=== PATIENT | female | born 1945 | race Caucasian/White ===

== ENCOUNTER 2018-08-12 17:54 | Inpatient (IN) ==
--- NOTE | 2018-08-12 19:09 | Emergency Department Note ---
Disposition Clinical Impression: PPD positive, Abnormal CXR Dementia Qualifiers: Dementia type: unspecified type Dementia behavioral disturbance: with behavioral disturbance Qualified Code(s): F03.91 - Unspecified dementia with behavioral disturbance Disposition: Admitted As Inpatient Condition: Fair Time of Disposition: 01:29 General Adult HPI - General Chief complaint: ED General Medical Stated complaint: Possible TB Time Seen by Provider: 08/12/18 18:32 - History of Present Illness HPI Narrative: 73 year old female comes into the ER today after receiving a TB test at her PCP two days ago even though she has a know allergy to the TB test. Today when she went nto have the test read she was advised to go to the ER. She is currently not complaining of any symptoms currently. She is with one of her caregivers, who give most of the history due to the pt having dementia. She denies any cough, hemoptysis, sputum production, night sweats, nausea, vomiting, fever, chills, or headache. Pain Scale: 0 - Related Data Home Medications Medication Instructions Recorded Confirmed PARoxetine HCl [Paroxetine HCl] 40 mg PO 1600 01/25/18 08/12/18 Quetiapine Fumarate [Seroquel] 100 mg PO TID 01/25/18 08/12/18 Allergies Allergy/AdvReac Type Severity Reaction Status Date / Time lorazepam [From Ativan] Allergy Rash Verified 06/09/18 18:46 tb skin test Allergy Mild Rash Uncoded 06/09/18 18:46 Constitutional: Denies: fever, chills, weakness, weight change, night sweats ENT ED: Denies: congestion Cardiovascular: Denies: chest pain Respiratory: Denies: cough, hemoptysis, sputum production Gastrointestinal: Denies: abdominal pain, nausea, vomiting Past Medical History - Past Medical History Medical history: Reports: dementia, hypertension Surgical history: Reports: non-contributory Psychiatric history: Reports: no psych history 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 Absent: respiratory distress, wheezes - Cardiovascular Cardiovascular exam: Present: normal rhythm, normal heart sounds - Abdominal Exam Abdominal exam: Present: soft, Non-Tender. Absent: distention, guarding - Expanded Upper Extremity Exam Forearm/Wrist exam: Present: erythema (left positive TB test) Course Vital Signs Pulse Rate 106 08/12/18 18:25 Respiratory Rate 20 08/12/18 18:25 O2 Sat by Pulse Oximetry 95 08/12/18 18:25 Temperature 97.4 F L 08/12/18 22:21 Pulse Rate 98 08/12/18 22:21 Respiratory Rate 16 08/12/18 22:21 Blood Pressure 137/74 08/12/18 22:21 O2 Sat by Pulse Oximetry 92 08/12/18 22:21 Oxygen Delivery Oxygen Delivery Room Air
--- NOTE | 2018-08-12 19:35 | Emergency Department Note ---
Disposition Clinical Impression: PPD positive, Abnormal CXR Dementia Qualifiers: Dementia type: unspecified type Dementia behavioral disturbance: with behavioral disturbance Qualified Code(s): F03.91 - Unspecified dementia with behavioral disturbance Disposition: Admitted As Inpatient Condition: Fair Time of Disposition: 23:42 General Adult HPI - General Chief complaint: ED General Medical Stated complaint: Possible TB Time Seen by Provider: 08/12/18 18:32 Source: family Mode of arrival: wheelchair Limitations: age, other (demetia) Nursing Notes Reviewed: Yes Vital Signs Reviewed: Yes - History of Present Illness HPI Narrative: The history, physical exam, and medical decision making was performed by the medical student either while I was physically present and actively involved or I personally re-performed the exam and medical decision making. I have verified the accuracy of the medical student's documentation with regards to the history, physical exam findings, and medical decision making. Pain Scale: 0 - Related Data Home Medications Medication Instructions Recorded Confirmed PARoxetine HCl [Paroxetine HCl] 40 mg PO 1600 01/25/18 08/12/18 Quetiapine Fumarate [Seroquel] 100 mg PO TID 01/25/18 08/12/18 Allergies Allergy/AdvReac Type Severity Reaction Status Date / Time lorazepam [From Ativan] Allergy Rash Verified 06/09/18 18:46 tb skin test Allergy Mild Rash Uncoded 06/09/18 18:46 All systems ED: reviewed and negative except as stated. Review of Systems: As Per HPI Limitations: ROS unobtainable due to patients medical condition Constitutional: Denies: fever, chills, weakness, weight change, night sweats ENT ED: Denies: congestion Cardiovascular: Denies: chest pain Respiratory: Denies: cough, hemoptysis, sputum production Gastrointestinal: Denies: abdominal pain, nausea, vomiting Integumentary: Reports: other (Left arm redness and erythema with PPD) Past Medical History - Past Medical History Medical history: Reports: dementia, hypertension Surgical history: Reports: non-contributory Psychiatric history: Reports: no psych history NOISE TESTER history: Reports: no NOISE TESTER history - Social History Smoking Status: Never smoker Smokeless Tobacco Status: No Alcohol use: Reports: none Drug use: Reports: none Physical Exam General: Patient is combative during physical exam however will not me examine her, she is in no acute distress, is unable to provide further history given history of dementia. Neck: No JVD. Trachea midline. Neck supple. Eyes: PERRL. No scleral icterus. HENT: Normocephalic and atraumatic. Moist mucus membranes. Cardiovascular: Regular rate and rhythm. Normal S1 and S2. No murmurs appreci ated. Normal capillary refill. Extremities well perfused with 2+ distal pulses bilaterally. No edema. Pulmonary: Normal and equal breath sounds bilaterally, anteriorly and posteriorly. No wheezes, rales, or rhonchi. Not in respiratory distress. Speaks in full sentences. Neuro: Alert, patient is not alert or oriented to person place or time, per caregiver and the redness is her baseline, no neurological deficit, patient is moving all 4 extremities, will not follow commands at this point. Per caregiver this is patient's baseline. Patient is verbalizing herself to the caregiver. Skin: Patient with left arm erythema with a approximate 15 mm region of raised area to the left anterior forearm, with surrounding erythema, without noticeable excoriation or induration, is slightly warm to touch. No fluctuance. Musculoskeletal: No bony abnormalities visualized. Moves all extremities. Psych: Normal mood. Pleasant. Makes appropriate eye contact. - General Limitations: age, other (demetia) General appearance: in no apparent distress Course Vital Signs Pulse Rate 106 08/12/18 18:25 Respiratory Rate 20 08/12/18 18:25 O2 Sat by Pulse Oximetry 95 08/12/18 18:25 Temperature 97.4 F L 08/12/18 22:21 Pulse Rate 98 08/12/18 22:21 Respiratory Rate 16 08/12/18 22:21 Blood Pressure 137/74 08/12/18 22:21 O2 Sat by Pulse Oximetry 92 08/12/18 22:21 Oxygen Delivery Oxygen Delivery Room Air Medical Decision Making - [facility] Narrative Medical decision making narrative: Patient is 73-year-old female presenting with caregiver from the long-term for concern for positive PPD. Patient with history of dementia and agitation. Per caregiver, patient is at mental status baseline with no acute change, patient is moving all 4 extremities but very difficult to perform examination as she does not follow Commands and becomes agitated easily. No acute neurological deficit is noticed on my examination. On examination there is a PPD that is on the left forearm appears to be positive with surrounding erythema, without fluctuance or noticed of abscess. He had a positive PPD and concern, chest x-ray was performed. Patient has remained asymptomatic throughout without known contacts. No recent cough, fevers chills or weight loss per caregiver. Patient unable to provide this history. Chest x-ray does show concern for possible latent tuberculosis, no fever or chills, afebrile with normal vital signs here in the ED. My attending did speak with the on-call mica patcher who initially thought that she would be appropriate for outpatient follow-up, however did call back the attending and state that he would like to go ahead and admit the patient as this is a higher risk situation given the patient's contact with other immunocompromise patients at a long-term. Patient will be admitted at this point in time. I did speak with the caregiver as well as the caregivers boss regarding the situation. She states that she currently has holds her own power of patent attorney, however he did discuss with her that she does not have capacity given her mental status, and that caregiver does state that there is family however they are not significantly in the picture. We did discuss at that point in time that they would need to try to contact them as if a procedure is to be done from a pulmonology standpoint we will need to be contacted for approval and consent. At this point the caregiver and her boss, they agree with disposition of admission. - Medical Records Medical records reviewed: Yes I reviewed the patient's medical records. - Radiology Data Radiology results reviewed: Yes I reviewed the patient's radiology results. Chest X-Ray 08/12/18 18:57 IMPRESSION: Focal pneumonitis versus subsegmental atelectasis central lower right lung. Chronic appearing coarse interstitial densities predominate parahilar regions and lung bases, typical of sequela from smoking or other previous infectious/inflammatory process. D/ / Steve Mckeon / Steve Mckeon Interpreting Provider: Steve Mckeon
--- NOTE | 2018-08-12 20:48 | Emergency Department Note ---
Disposition Clinical Impression: PPD positive, Abnormal CXR Dementia Qualifiers: Dementia type: unspecified type Dementia behavioral disturbance: with behavioral disturbance Qualified Code(s): F03.91 - Unspecified dementia with behavioral disturbance Disposition: Admitted As Inpatient Condition: Fair Forms: ED Satisfaction Letter, Work/School Release Time of Disposition: 20:47 General Adult HPI - General Chief complaint: ED General Medical Stated complaint: Possible TB Time Seen by Provider: 08/12/18 18:32 Source: family Mode of arrival: wheelchair Limitations: age, other (demetia) - History of Present Illness Pain Scale: 0 - Related Data Home Medications Medication Instructions Recorded Confirmed PARoxetine HCl [Paroxetine HCl] 40 mg PO 1800 01/25/18 01/27/18 Quetiapine Fumarate [Seroquel] 100 mg PO TID 01/25/18 01/25/18 Previous Rx's Medication Instructions Recorded Tobramycin Opth SOLN 1 drop RIGHT EYE QID #1 bottle 06/09/18 Allergies Allergy/AdvReac Type Severity Reaction Status Date / Time lorazepam [From Ativan] Allergy Rash Verified 06/09/18 18:46 tb skin test Allergy Mild Rash Uncoded 06/09/18 18:46 Constitutional: Denies: fever, chills, weakness, weight change, night sweats ENT ED: Denies: congestion Cardiovascular: Denies: chest pain Respiratory: Denies: cough, hemoptysis, sputum production Gastrointestinal: Denies: abdominal pain, nausea, vomiting Past Medical History - Past Medical History Medical history: Reports: dementia, hypertension Surgical history: Reports: non-contributory Psychiatric history: Reports: no psych history MACHINE LOAD CLERK history: Reports: no MACHINE LOAD CLERK history - Social History Smoking Status: Never smoker Smokeless Tobacco Status: No Alcohol use: Reports: none Drug use: Reports: none Physical Exam - General Limitations: age, other (demetia) General appearance: in no apparent distress Course Vital Signs Pulse Rate 106 08/12/18 18:25 Respiratory Rate 20 08/12/18 18:25 O2 Sat by Pulse Oximetry 95 08/12/18 18:25 Temperature 97.6 F 08/12/18 19:56 Pulse Rate 106 08/12/18 18:25 Respiratory Rate 20 08/12/18 19:56 Blood Pressure 153/98 08/12/18 19:56 O2 Sat by Pulse Oximetry 95 08/12/18 18:25 Oxygen Delivery Oxygen Delivery Room Air Attestation Statement - Attestation Attestation: I examined this patient and my medical decision-making was reviewed with the Resident Physician. I agree with the documented findings, disposition and treatment plan as described except to the extent set forth below. [facility] for a [facility]. No fever, hemoptysis, cough. Not able to get history from the patient as she has significant dementia and is not cooperative. Chest x-ray is abnormal. Findings discussed in detail with roof fitter neonatal nurse, who stated that their current policy for these cases is to admit to a negative pressure room. He will do a bronchoscopy in the morning. Spoke with hospitalist to admit the patient to the hospital. Spoke with charge nurse spoke with the patient and negative pressure room.
[2018-08-13] MEDS ORDERED: Naloxone 0.4 MG/ML INJ IVP PRN (01:20)
--- NOTE | 2018-08-13 01:29 | Internal Med History&Physical ---
Date of Encounter: 08/13/18 Time of Encounter: 00:45 Internal Medicine - H&P: HPI Chief complaint: Positive PPD test Admitted From: Emergency Dept Plans for Post Hospital Care: Home History of present illness: Ms. Shah is a 73 year old female Patient presented to the ER after having a positive PPD performed by his pcp. She has a history of dementia, and does not cooperate with the exam or answer questions. According to ER documentation patient had a TB test that was done by her PCP 2 days ago the results of which were positive. She lives at a [facility]. She initially presented with a caregiver who helped with the details of her history. She is unavailable for my exam. In the emergency department patient's initial vital signs demonstrated a slightly elevated heart rate of 106 and respiratory rate of 20. She was afebrile. No laboratory workup was performed Chest x-ray showed focal pneumonitis versus subsegmental atelectasis in the central lower right lung. There was chronic appearing coarse interstitial densities predominantly perihilar regions and lung bases typical of sequela from smoking or other previous infection/inflammatory process. Emergency department contacted on-call pulmonology who advised patient be admitted to the hospital for further workup and possible bronchoscopy. Patient was admitted to the hospital for further monitoring. Upon my evaluation, patient is in a negative pressure room laying in the bed in no acute distress. She does not answer questions does not acknowledge my presence. I was able to perform a limited physical exam. Past Med Surg Social Fam HX - Past Medical History Medical history: dementia, hypertension Additional medical history: MRDD Psychiatric history: no psych history - Past Surgical History Surgical History: non-contributory - Social History Smoking Status: Never smoker Smokeless Tobacco Status: No Alcohol use: none Drug use: none - Family History Mother Living Status: Father Living Status: Internal Medicine - H&P: Meds PARoxetine HCl [Paroxetine HCl] 40 mg PO 1600 01/25/18 [History] Quetiapine Fumarate [Seroquel] 100 mg PO TID 01/25/18 [History] Allergy/AdvReac Type Severity Reaction Status Date / Time lorazepam [From Ativan] Allergy Rash Verified 06/09/18 18:46 tb skin test Allergy Mild Rash Uncoded 06/09/18 18:46 ROS unobtainable: due to mental status All Systems PM: A 10-system review of systems was performed and is negative for pertinent findings except as documented above in the HPI. - Constitutional Vitals: Temp Pulse Resp BP Pulse Ox 97.4 F L 98 16 137/74 92 08/12/18 22:21 08/12/18 22:21 08/12/18 22:21 08/12/18 22:21 08/12/18 22:21 General appearance: Present: no acute distress. Absent: cooperative, answers questions appropriately Exam: Patient not responding to questions, does not cooperate with exam - Head Head exam: Present: normal inspection - Respiratory Respiratory exam: Present: CTAB - Cardiovascular Cardiovascular exam: Present: RRR - GI/Abdominal GI/Abdominal exam: Present: normal bowel sounds - Extremities Exam Extremities exam: Present: warm, radial pulses palpable and symmetrical. Absent: pedal edema - Skin Skin exam: Present: dry, normal color, warm Internal Med - H&P Results - Labs CBC & Chem 7: 08/13/18 02:01 - Impressions ITS Impressions Chest X-Ray 08/12/18 18:57 IMPRESSION: Focal pneumonitis versus subsegmental atelectasis central lower right lung. Chronic appearing coarse interstitial densities predominate parahilar regions and lung bases, typical of sequela from smoking or other previous infectious/inflammatory process. D/ / Steve Mckeon / Steve Mckeon Interpreting Provider: Steve Mckeon - Assessment and Plan (1) PPD positive Current Visit: Yes Status: Acute Assessment and plan: Emergency department discussed results with on-call pulmonology. They agree patient should be admitted for further monitoring and workup as well as isolation from other possible immunocompromised patients that the patient shares residency with at the [facility]. Follow-up pulmonology consultation Continue isolation (2) Abnormal CXR Current Visit: Yes Status: Acute Assessment and plan: Chest x-ray showed focal pneumonitis versus subsegmental atelectasis and central lower lung also predominant perihilar regions at the lung bases which could be infectious or inflammatory processes. This along with the positive PPD is concerning for possible tuberculosis. CT chest was ordered, however due to patient's combative nature she this was unable to be performed. Follow-up pulmonology recommendations Continue negative pressure isolation (3) Dementia Current Visit: Yes Status: Chronic Assessment and plan: History of dementia, patient is resident at a [facility]. She takes paroxetine and quetiapine. Continue home meds Qualifiers: Dementia type: unspecified type Dementia behavioral disturbance: with behavioral disturbance Qualified Code(s): F03.91 - Unspecified dementia with behavioral disturbance (4) DVT prophylaxis Current Visit: Yes Status: Acute Assessment and plan: SCDs - Time Spent With Patient Total time spent is greater than 50% in coordination of care (as documented) at patient's floor/unit and/or counseling patient: Greater than 35 minutes
[2018-08-13 03:06] LABS: Hemoglobin 11.6 g/dL (11.5-15.4); Mean Corpuscular HGB Conc 30.5 g/dL (31.6-35.5); Mean Corpuscular Hemoglobin 27.8 pg (28.0-33.3); Mean Corpuscular Volume 90.9 fL (83.0-100.0); Mean Platelet Volume 10.3 fL (9.4-12.4); Platelet Count 281 K/mcL (140-400); Red Blood Count 4.18 M/mcL (3.82-4.97); White Blood Count 9.1 K/mcL (4.3-11.1)
--- NOTE | 2018-08-13 06:36 | Pulmonology Consult Note ---
Date of Encounter: 08/13/18 Time of Encounter: 06:35 Assessment and Plan (1) PPD positive Current Visit: Yes Status: Acute In conclusion this is a 73-year-old woman from a nursing home who suffers from dementia she is unable to provide any medical history but was screened for tuberculosis and found to have a positive PPD test. I very low suspicion for a ctive tuberculosis in this patient but unfortunately she does have an abnormal CXR scan cannot fully exclude this possibility at this time. The most definitive answer would be to send the patient for bronchoscopy which I intend to do but there is been a couple of complications that have arisen on one is from the information I can gather right now the patient makes her own decisions and does not have any established guardian or next of kin. Clearly the patient is not competent my opinion to make medical decision and I am going to have to involve the geriatric social work professor to either establish a legal guardian or to get consent from another physician to do this procedure it is not emergent and so that also makes this little more difficult. She is also not a very good candidate for induced sputum with collection from an a cup which is another option to establish the diagnosis of tuberculosis. Or to rule this infection around in the active form. At this point I have plan for bronchoscopy but making sure that we get appropriate consent to do this is of the most important. And pelvis is esta blish I recommend the patient remain in airborne isolation. (2) Dementia Current Visit: Yes Status: Chronic Qualifiers: Dementia type: unspecified type Dementia behavioral disturbance: with behavioral disturbance Qualified Code(s): F03.91 - Unspecified dementia with behavioral disturbance (3) Abnormal CXR Current Visit: Yes Status: Acute History of Present Illness Consult date: 08/13/18 Requesting physician: Eric Carney Reason for consult: abnormal CXR/CT Chief complaint: Abnormal PPD History of present illness: This is a 73-year-old woman and unfortunately her medical history was obtained entirely from the medical record as well as the nursing staff because there is no family members available/next of kin and there are no members of the nursing home where she resides available to speak to at this time. I was consulted yesterday evening by the emergency room physician because the patient had presented from the nursing home because of an abnormally positive PPD apparently this was done as part of routine surveillance to be a member of that facility. It is unclear to me if the patient has had any exposures to patients with tuberculosis in the past but on admission did have a abnormal CT scan with some possible chronic fibrotic/interstitial changes. The patient is otherwise appears asymptomatic she is not coughing copy up any blood she is not febrile apparently from reports she has not been ill or losing weight as of late etc. She is demented at baseline and on multiple medications because of agitation. She is unable to answer any questions in the room but she does smile at me and she is not aggressive in my presence that she has been per report of nursing staff since she has been in the hospital. Given the abnormal chest x-ray and abnormally positive PPD I felt it was most prudent over evening but the patient in contact isolation until we can definitively prove if she could have active tuberculosis or not although my initial suspicion was quite low and I expressed that directly with the emergency room physician overnight. Past Med Surg Social Fam HX - Past Medical History Medical history: dementia, hypertension Additional medical history: MRDD Psychiatric history: no psych history - Past Surgical History Surgical History: non-contributory - Social History Smoking Status: Never smoker Smokeless Tobacco Status: No Alcohol use: none Drug use: none - Family History Mother Living Status: Father Living Status: Medications and Allergies PARoxetine HCl [Paroxetine HCl] 40 mg PO 1600 01/25/18 [History] Quetiapine Fumarate [Seroquel] 100 mg PO TID 01/25/18 [History] Allergy/AdvReac Type Severity Reaction Status Date / Time lorazepam [From Ativan] Allergy Rash Verified 06/09/18 18:46 tb skin test Allergy Mild Rash Uncoded 06/09/18 18:46 ROS unobtainable: due to mental status Physical Examination Vital Signs: Vital Signs, Last 4 Hours Temp Pulse Resp BP Pulse Ox 08/13/18 06:11 97.5 F L 87 16 169/83 94 General appearance: no acute distress Eyes: nonicteric ENT: oropharynx moist Effort: normal Auscultation: bilateral: clear (Air entry bilaterally no wheezes) Cardiovascular: regular rate and rhythm Gastrointestinal: soft, non-tender Integumentary: other (There is a red indurated area in her left forearm that is greater than 15 mm) Extremities: no edema Musculoskeletal: no deformities pupils equal and round, unable to assess due to mental status, other (A question such as her name she is unable to give me any direct answers she does smile at me occasionally she is able to follow some simple commands will not speak) affect normal Results - Laboratory Findings CBC and BMP: 08/13/18 02:01 08/13/18 07:48 Abnormal lab findings: Abnormal lab results MCH 27.8 pg (28.0-33.3) L 08/13/18 02:01 MCHC 30.5 g/dL (31.6-35.5) L 08/13/18 02:01 - Diagnostic Findings Chest x-ray: report reviewed, image reviewed - Clinical Findings Intake & Output: Intake & Output 08/12/18 08/12/18 08/13/18 15:59 23:59 07:59 Weight 72.575 kg 72.7 kg Consult Discharge Plan - Plan Referrals: Vel Voss MD [Primary Care Provider] -
[2018-08-13 08:35] LABS: Alanine Aminotransferase 7 Units/L (7-52); Albumin/Globulin Ratio 1.4 (1.1-2.2); Alkaline Phosphatase 74 Units/L (34-104); Aspartate Amino Transferase 15 Units/L (13-39); BUN/Creatinine Ratio 17 (6-26); Bilirubin,Total 0.4 mg/dL (0.3-1.0); Blood Urea Nitrogen 13 mg/dL (8-23); Calcium 8.8 mg/dL (8.6-10.3); Carbon Dioxide 28 mEq/L (23-29); Chloride 104 mEq/L (98-107); Globulin 2.9 g/dL (2.4-3.5); Glucose 97 mg/dL (70-105); Osmolality,Calculated 296 (280-300); Potassium 4.7 mEq/L (3.5-5.1); Sodium 143 mEq/L (136-145); Total Protein 6.9 g/dL (6.4-8.9); eGFR For African Americans > 60 (> 60); eGFR For Non-African Americans > 60 (> 60)
--- NOTE | 2018-08-13 11:40 | Event Note ---
Date of Encounter: 08/13/18 Time of Encounter: 08:00 here for positive PPD performed which was performed by PCP. unable to obtain information due to dementia. discussed case with pulmonology and will move forward with bronchoscopy. continue to remain NPO will follow AFB results from bronchoscopy. fall, Aspiration precautions rest of the management as per HPI
[2018-08-13] MEDS ORDERED: 0.9 % Sodium Chloride 1,000 ML IVC SCH (11:45)
[2018-08-14] MEDS ORDERED: 0.9 % Sodium Chloride 1,000 ML IVC SCH (00:01)
--- NOTE | 2018-08-14 07:33 | Event Note ---
Date of Encounter: 08/14/18 Time of Encounter: 07:30 Multiple discussions have been had over the last 24 hours with the social and human services assistant try to track down a legal guardian are next of kin turns out the patient does have a son named Hari Shah who I spoke with on the phone this morning in front of the nurse he gave consent for the procedure I explained thatA bronchoscopy is recommended. The procedure , risks, benefits, complications, and expected outcomes have been reviewed. Benefits of diagnosis, as well as risks to include bleeding, infection, pneumothorax which may require surgical intervention, and in a small population. The patient's son is aware that sometimes test is nondiagnostic. Discussed with patient's son and he agrees to proceed.
[2018-08-14] MEDS ORDERED: Ondansetron 4 MG/2 ML VIAL ONE (08:29)
[2018-08-14] MEDS ORDERED: *HR* Succinylcholine 200 MG/10 ML VIAL IVP ONE (08:29)
[2018-08-14] MEDS ORDERED: Lidocaine -MPF 2% 2 ML VIAL ONE (08:29)
[2018-08-14] MEDS ORDERED: Dexamethasone 4 MG/ML VIAL ONE (08:29)
[2018-08-14] MEDS ORDERED: *HR* Propofol 200 MG/20 ML VIAL IVP ONE (08:34)
[2018-08-14] MEDS ORDERED: Lidocaine -MPF 4% 5 ML AMPUL ONE (08:35)
--- NOTE | 2018-08-14 08:37 | Anesthesia Evaluation PreOp ---
Date of Encounter: 08/14/18 Time of Encounter: 08:35 - Past History Planned Operation: Bronch re: + TB test and suspicious imaging Cardiac History: HTN Pulmonary History: Denies Any Significant HX ASSOCIATE CREATIVE DIRECTOR History: Other (Dementia w/behavioral disturbance this hospitalization. Poorly cooperative/Uncommunicative. Mild MRDD per chart) Other Medical History: Denies Any Significant HX Anesthesia History: No Prior Anesthetic Complications, Past Anesthesia Alcohol Use: none Drug use: none Medications and Allergies PARoxetine HCl [Paroxetine HCl] 40 mg PO 1600 01/25/18 [History] Quetiapine Fumarate [Seroquel] 100 mg PO TID 01/25/18 [History] Allergy/AdvReac Type Severity Reaction Status Date / Time lorazepam [From Ativan] Allergy Rash Verified 06/09/18 18:46 tb skin test Allergy Mild Rash Uncoded 06/09/18 18:46 - Meds/Allergy Pre-op Review Medications Reviewed: Yes Allergies Reviewed: Yes Beta Blockers on Current Med List: No Anesthesia Results - Labs 08/13/18 02:01 08/13/18 07:48 Laboratory Tests 08/13/18 07:48 Est GFR (Non-Af Amer) > 60 Impressions Chest X-Ray 08/12/18 18:57 IMPRESSION: Focal pneumonitis versus subsegmental atelectasis central lower right lung. Chronic appearing coarse interstitial densities predominate parahilar regions and lung bases, typical of sequela from smoking or other previous infectious/inflammatory process. D/ / Steve Mckeon / Steve Mckeon Interpreting Provider: Steve Mckeon - Imaging EKG: report reviewed (118bpm - Sinus tachycardia Probable left atrial enlargement Borderline left axis deviation Electronically Signed On 01-26-2018 6:19:18 EST by Jeffery Avila) Chest x-ray: report reviewed Anesthesia Exam Vital Signs Temp Pulse Resp BP Pulse Ox 08/14/18 06:18 97.7 F 87 15 148/82 94 08/14/18 04:06 97.5 F L 77 16 164/89 95 08/13/18 17:56 98.1 F 104 16 153/83 92 08/13/18 11:51 97.8 F 82 16 154/65 96 Intake and Output 08/13/18 08/14/18 08/14/18 23:59 07:59 15:59 Intake Total 240 / 260 Balance 240 / 260 Intake: Oral 240 / 240 Other: Meal Dinner Percent of Meal Consumed 80% # Urine Diapers 1 Height: 5'2" Weight: 160# BMI = 29 NPO (# of Hours): MNoc - HEENT Pupil (Motor): Pupils equal, EOMI Mallampati: III (Poorly cooperative to exam) Teeth: Edentulous Oral Opening: Greater than 3 - ASSOCIATE CREATIVE DIRECTOR LOC: Oriented ASSOCIATE CREATIVE DIRECTOR Motor: Normal RUE, Normal LUE, Normal RLE, Normal LLE, Normal Face ASSOCIATE CREATIVE DIRECTOR Sensory: Normal: RUE, LUE, RLE, LLE, Face - Cardiac Rhythm: Regular Murmur: None - Pulmonary Breath Sounds: bilateral Clear Respiratory Effort: Symmetrical Anesthesia Assess/Plan ASA Score: 3 (Dementia, HTN, + TB test) Anes Supervising Prov Stmt: PT seen/evaluated, R&B Discussed with son Hari Shah [[phone] OR [phone]] questions answered and consent obtained. Rosmery Juarez MD
[2018-08-14] MEDS ORDERED: EPHEDrine 50 MG/ML VIAL ONE (09:02)
[2018-08-14] MEDS ORDERED: Esmolol 100 MG/10 ML VIAL IVP ONE (09:57)
--- NOTE | 2018-08-14 10:55 | Event Note ---
Date of Encounter: 08/14/18 Time of Encounter: 10:53 Bronchoscopy was performed without complication. AFB samples have been sent off from bronchoalveolar lavage fact I lavaged in 3 separate areas. From this standpoint the proximal samples are generally process once today with regards to AFB once she has negative samples then she can be taken off airborne isolation. I am no further recommendations from standpoint of pulmonary until this is done. Once negative (in the unlikely event or positive) she will need consultation with the infectious disease prior to discharge. Please call with any questions
--- NOTE | 2018-08-14 11:48 | Internal Med Progress Note ---
Hospitalist Progress Note - Encounter Date of Encounter: 08/14/18 Time of Encounter: 11:00 - Subjective Interval History: dalila was seen and examinedat bedside. unable to provide any information secondary to dementia shakes her head yes or no to some questions. has no pain, fever or chills. no overnight events as per nursing staff - Exam Vitals: Temp Pulse Resp BP Pulse Ox 98.0 F 88 18 145/88 94 08/14/18 11:24 08/14/18 11:24 08/14/18 11:24 08/14/18 11:24 08/14/18 11:24 Exam: General: Patient is alert, uncooperative, does not respond to questions , shakes head yes or no to some questions Head: atraumatic, normocephalic, Eye: normal appearance, PERRL, no scleral icterus, no conjunctival injection ENT: mucous membranes moist, normal external ear exam Neck: normal inspection, trachea midline, full ROM, no carotid bruits Chest: normal inspection, symmetric chest rise Respiratory: Good respiratory effort. Bilateral breath sounds are clear without wheezing, crackles, or rhonchi. Cardiovascular: Regular rate and rhythm. s1 and s2 No clicks, rubs, gallops, or murmors. Abdomen: Bowel sounds present normoactive x-4 quadrants. Abdomen is soft, nondistended. no Epigastric tenderness. No guarding or rebound. No organomegaly noted, obese musculoskeletal: Spontaneously moving all extremities. no edema, no calf tenderness Skin: warm, dry, intact. Neuro: Alert and not oriented, uncooperative, does not respond questions. As per nursing staff she does speak some. Psych: Flat affect - Assessment and Plan (1) PPD positive Current Visit: Yes Status: Acute Assessment and Plan: Positive PPD Abnormal chest x-ray cannot fully exclude TB Pulmonology was consulted Status post bronchoscopy on 08/14 Follow AFB results ID was consulted Continue airborne precautions (2) Dementia Current Visit: Yes Status: Chronic Assessment and Plan: History of dementia, patient is resident at a skilled nursing. Continue home meds (3) Abnormal CXR Current Visit: Yes Status: Acute Assessment and Plan: CXR: Focal pneumonitis versus subsegmental atelectasis central lower right lung. Chronic appearing coarse interstitial densities predominate parahilar regions and lung bases, typical of sequela from smoking or other previous infectious/inflammatory process. s/p bronchoscopy follow cx no leukocytosis or fever - hold off of abx (4) DVT prophylaxis Current Visit: Yes Status: Acute Assessment and Plan: SCDs - Time Spent with Patient Total time spent is greater than 50% in coordination of care (as documented) at patient's floor/unit and/or counseling patient: Internal Medicine: Result - Labs CBC & Chem 7: 08/13/18 02:01 08/13/18 07:48 Consult Discharge Plan - Plan [place]: [facility] [place] [Primary Care Provider] - (Unable to schedule appointment. Please call Wednesday to schedule hospital follow up appointment for 7-10 days from date of discharge. ) ____ (2) Dementia Qualifiers: Dementia type: unspecified type Dementia behavioral disturbance: with behavioral disturbance Qualified Code(s): F03.91 - Unspecified dementia with behavioral disturbance
[2018-08-14 14:50] LABS: Appearance of Body Fluid Slightly Hazy (Clear); Volume of Body Fluid 11 mL
[2018-08-14 14:50] LABS: Appearance of Body Fluid Slightly Hazy (Clear); Volume of Body Fluid 12 mL
[2018-08-14 14:50] LABS: Appearance of Body Fluid Slightly Hazy (Clear); Volume of Body Fluid 11 mL
--- NOTE | 2018-08-14 22:01 | Event Note ---
Date of Encounter: 08/14/18 Time of Encounter: 21:45 Encounter 2144: Patient placed in restraints due to combative behavior. I evaluated the patient, she is currently calm, denies pain. Will continue to evaluate. Patient did not take her Seroquel earlier. Will try again. Last evening she did take her medication and did well. We will continue to monitor. May remove restraints if patient becomes less combative.
--- NOTE | 2018-08-15 11:46 | Internal Med Progress Note ---
Hospitalist Progress Note - Encounter Date of Encounter: 08/15/18 Time of Encounter: 08:00 - Subjective Interval History: Patient was seen and examined at bedside. Laying in bed. Continues to be nonverbal however as per staff she does speak at times. As per my colleague "Patient placed in restraints due to combative behavior. I evaluated the patient, she is currently calm, denies pain. Will continue to evaluate. Patient did not take her Seroquel earlier. Will try again. Last evening she did take her medication and did well. We will continue to monitor. May remove restraints if patient becomes less combative." Nursing staff aware to continue with frequent redirection. - Exam Vitals: Temp Pulse Resp BP Pulse Ox 97.7 F 84 16 173/77 93 08/15/18 02:52 08/15/18 02:52 08/15/18 02:52 08/15/18 02:52 08/15/18 02:52 Exam: General: Patient is alert, uncooperative, does not respond to questions , shakes head yes or no to some questions Head: atraumatic, normocephalic, Eye: normal appearance, PERRL, no scleral icterus, no conjunctival injection ENT: mucous membranes moist, normal external ear exam Neck: normal inspection, trachea midline, full ROM, no carotid bruits Chest: normal inspection, symmetric chest rise Respiratory: Good respiratory effort. Bilateral breath sounds are clear without wheezing, crackles, or rhonchi. Cardiovascular: Regular rate and rhythm. s1 and s2 No clicks, rubs, gallops, or murmors. Abdomen: Bowel sounds present normoactive x-4 quadrants. Abdomen is soft, nondistended. no Epigastric tenderness. No guarding or rebound. No organomegaly noted, obese musculoskeletal: Spontaneously moving all extremities. no edema, no calf tenderness Skin: warm, dry, intact. Neuro: Alert and not oriented, uncooperative, does not respond questions. As per nursing staff she does speak some. Psych: Flat affect - Assessment and Plan (1) PPD positive Current Visit: Yes Status: Acute Assessment and Plan: Positive PPD Abnormal chest x-ray cannot fully exclude TB Pulmonology was consulted Status post bronchoscopy on 08/14 Follow AFB results ID was consulted Continue airborne precautions (2) Dementia Current Visit: Yes Status: Chronic Assessment and Plan: History of dementia, patient is resident at a long term. Continue home meds (3) Abnormal CXR Current Visit: Yes Status: Acute Assessment and Plan: CXR: Focal pneumonitis versus subsegmental atelectasis central lower right lung. Chronic appearing coarse interstitial densities predominate parahilar regions and lung bases, typical of sequela from smoking or other previous infectious/inflammatory process. s/p bronchoscopy follow cx no leukocytosis or fever - hold off of abx (4) DVT prophylaxis Current Visit: Yes Status: Acute Assessment and Plan: SCDs - Time Spent with Patient Total time spent is greater than 50% in coordination of care (as documented) at patient's floor/unit and/or counseling patient: Internal Medicine: Result - Labs CBC & Chem 7: 08/13/18 02:01 08/13/18 07:48 Consult Discharge Plan - Plan Referrals: Vel Voss MD [Primary Care Provider] - 08/26/18 1:00 pm () (2) Dementia Qualifiers: Dementia type: unspecified type Dementia behavioral disturbance: with behav ioral disturbance Qualified Code(s): F03.91 - Unspecified dementia with be havioral disturbance
--- NOTE | 2018-08-15 14:08 | Infectious Disease Consult ---
Infectious Disease-Consult - Encounter Date/Time Date of Encounter: 08/15/18 Time of Encounter: 14:38 - Data of Consult Requesting Physician: Flora Crowder MD Primary Care Provider: Vel Voss MD - HPI HPI: Ms. Shah is a 73-year-old female presented to the ER after having a positive PPD performed by her PCP. Infectios disease was consulted owing to postive PPD and abnormal CXR findings. Ms. Shah is a 73 y.o female past medical history of dementia who presented to ED after positive PPD performed by his PCP. She underwent a TB test almost 2 days ago at her PCP's office which was found to be positive. She lives in a intermediate. Initial workup in the ER showed that patient was tachycardic at 106,RR: 20, was afebrile. There was no evidence of any fever or hemoptysis or cough. Upon arrival to the floor, patient had CBC and BMP done which was unremarkable. She also had a chest x-ray which showed focal pneumonitis versus subsegmental atelectasis in the central lower right lung. There was chronic appearing coarse interstitial densities predominantly in perihilar regions and lung bases atypical of sequelae from smoking or other previous infection or inflammatory process. Pulmonology was consulted and they had a very low suspicion for active tuberculosis. Recommendations were made for bronchoscopy and BAL was negative *3 for AFB . Owing to her history of dementia, we were unable to extract any occupational or social history out of her. Patient appeared to be at her baseline dementia state when I saw her, was tracking me as I walked in the room. I was unable to extract much information out of her. On physical exam she appeared to be no acute distress, there was no evidence of any productive cough, she was afebrile to touch, not drenched in sweat, not using her accessory muscles for breathing. Lung sounds are clear to auscultation bilaterally and there was no evidence of any hemoptysis - Results CBC & Chem 7: 08/13/18 02:01 08/13/18 07:48 - Exam Vitals: Temp Pulse Resp BP Pulse Ox 97.7 F 84 16 173/77 93 08/15/18 02:52 08/15/18 02:52 08/15/18 02:52 08/15/18 02:52 08/15/18 02:52 Exam: Gen.: Vitals noted. No acute distress. Alert, awake and oriented * [address], and time, well developed, well-nourished resting comfortably in bed. Pleasant. HEENT: oropharynx clear, Normocephalic, atraumatic, MMM Neck: supple, no JVD, no lymphadenopathy, no carotid bruit. Cardiac: RRR, no murmur, +S1/S2, No BLE edema, PMI non-displaced Pulmonary: CTA bilaterally, no wheezes, rales or rhonchi, equal chest expansion, unlabored breathing Abdomen: soft, nontender, BS noted, no guarding, non- distended. No organomegaly, no pulsatile masses, Skin: warm and dry, no visible lesions. Feels warm, clammy, no rashes, no lesions, no erythema MSK: left great toe draped in bandage, ROM not assessed. no joint swelling noted, gait not assessed while in bed. Non tender calf or clubbing, no cyanosis/clubbing/ or edema Neuro: A&O, moves all extremities, no focal deficits, decreased sensation in the left lower extremity, right extremity sensation intact. Psych: Appropriate mood and behavior, normal speech. PARoxetine HCl [Paroxetine HCl] 40 mg PO 1600 01/25/18 [History] Quetiapine Fumarate [Seroquel] 100 mg PO TID 01/25/18 [History] Allergy/AdvReac Type Severity Reaction Status Date / Time lorazepam [From Ativan] Allergy Rash Verified 06/09/18 18:46 tb skin test Allergy Mild Rash Uncoded 06/09/18 18:46 - Assessment and Plan (1) PPD positive Status: Acute -patient had a positive PPD at her PCP. - Since patient is a poor historian, I am currently unsure if she has any exposure to tuberculosis, not sure if she has any recent travels, was unable to get any occupational exposure or any other past social history. -Patient had no history of any hemoptysis in the ER or during the course of her hospital stay. - she is afebrile, does not endorses any pain while breathing or coughing -Patient was chest x-ray was positive for focal pneumonitis versus subsegmental atelectasis in the central lower right lung. -She is currently status post a bronchoscopy and BAL: AFB negative *3 -Patient's airborne isolation has been discontinued because patient's AFB sme ars has been negative *3. PLAN: - Will perform the Quantiferon gold test since this is not an active TB. -If cultures continue to be negative she will be treated for latent TB -She will follow up with infectious diseases an outpatient for weeks SNOMED Code(s): 099723122 (2) Abnormal CXR Status: Acute CXR: Focal pneumonitis versus subsegmental atelectasis central lower right lung. Chronic appearing coarse interstitial densities predominate parahilar regions and lung bases, typical of sequela from smoking or other previous infectious/inflammatory process. PLAN: -as above SNOMED Code(s): 542901372, 997818172 (3) Dementia Status: Chronic Patient has a history of dementia and is a resident at a intermediate. Continue home medications. Qualifiers: Dementia type: unspecified type Dementia behavioral disturbance: with behavioral disturbance Qualified Code(s): F03.91 - Unspecified dementia with behavioral disturbance SNOMED Code(s): 91488351 Past Med Surg Social Fam HX - Past Medical History Medical history: dementia, hypertension Additional medical history: MRDD Psychiatric history: no psych history - Past Surgical History Surgical History: non-contributory - Social History Smoking Status: Never smoker Smokeless Tobacco Status: No Alcohol use: none Drug use: none - Family History Mother Living Status: Father Living Status: Consult Discharge Plan - Plan Instructions: Tuberculosis (DC), Tuberculosis (GEN) [place] [facility] [place] - 08/26/18 1:00 pm () Franck Sanchez MD [Partnered Physician] - (Referral has been made. Office will call to schedule appointment within 2-3 weeks) - Attending Attestation I examined this patient and my medical decision-making was reviewed with the Resident Physician. I agree with the documented findings, disposition and treatment plan as described except to the extent set forth below. Assessment and plan: Positive PPD - exposed to her history unknown. Patient with severe dementia still unable to give us any information. Status post chest x-ray 08/12: "Focal pneumonitis versus subsegmental atelectasis central lower right lung" s/p bronchoscopy and BAL: AFB negative x 3; unlikley this is active TB; check QuantiFERON Recommendations: we will d/c airborne isolation since negative AFB smears Once a cultures are finalized, if they continue to be negative we will treat for latent TB follow up as outpatient in 4 weeks
--- NOTE | 2018-08-16 11:03 | Discharge Summary ---
- NOTES TO OUTPATIENT PROVIDER Notes to Outpatient Provider: misty mauro with ID in 3 weeks Orders not resulted at time of discharge: Pending orders 08/14/18 10:36 AFB Culture, Respiratory [TB] Routine AFB Smear [TB] Routine Culture,Respiratory [RM] Routine Fungal Culture [MYC] Routine Resp.Virus Panel,Body Fl Routine 08/14/18 10:41 AFB Culture, Respiratory [TB] Routine AFB Smear [TB] Routine Culture,Respiratory [RM] Routine Fungal Culture [MYC] Routine Herpes Simplex PCR Body Fl Routine Resp.Virus Panel,Body Fl Routine 08/14/18 10:45 AFB Culture, Respiratory [TB] Routine AFB Smear [TB] Routine Culture,Respiratory [RM] Routine Herpes Simplex PCR Body Fl Routine Resp.Virus Panel,Body Fl Routine 08/14/18 10:46 Fungal Culture [MYC] Routine 08/16/18 01:41 QuantiFERON-TB Gold In-Tube AM 0400 Date of Encounter: 08/16/18 Time of Encounter: 11:01 - Discharge Diagnosis (1) PPD positive Priority: Primary Status: Acute (2) Dementia Priority: Secondary Status: Chronic Qualifiers: Dementia type: unspecified type Dementia behavioral disturbance: with behavioral disturbance Qualified Code(s): F03.91 - Unspecified dementia with behavioral disturbance (3) Abnormal CXR Priority: Secondary Status: Acute Hospital course: "Ms. Shah is a 73 year old female Patient presented to the ER after having a positive PPD performed by his pcp. She has a history of dementia, and does not cooperate with the exam or answer questions. According to ER documentation patient had a TB test that was done by her PCP 2 days ago the results of which were positive. She lives at a skilled nursing. She initially presented with a caregiver who helped with the details of her history. She is unavailable for my exam. In the emergency department patient's initial vital signs demonstrated a slightly elevated heart rate of 106 and respiratory rate of 20. She was afebrile. No laboratory workup was performed Chest x-ray showed focal pneumonitis versus subsegmental atelectasis in the central lower right lung. There was chronic appearing coarse interstitial densities predominantly perihilar regions and lung bases typical of sequela from smoking or other previous infection/inflammatory process. Emergency department contacted on-call pulmonology who advised patient be admitted to the hospital for further workup and possible bronchoscopy. Patient was admitted to the hospital for further monitoring. Upon my evaluation, patient is in a negative pressure room laying in the bed in no acute distress. She does not answer questions does not acknowledge my presence. I was able to perform a limited physical exam." Patient presented with above presentation and had above ED course. She was admitted on 08/13/18 to rule out active tuberculosis. Pulmonology was consulted and as patient did not have capacity to make medical decisions social work was consulted. 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 airborne isolation was discontinued since negative AFB smears. I discussed the case with infectious disease physician and he cleared the patient to be discharged back to the skilled nursing without any isolation. She is to follow-up with him in 3 weeks for QuantiFERON report and for for final BAL cultures. Nursing staff aware to provide patient with follow-up appointment. Case management and social work on board to facilitate transfer back to skilled nursing. Discharge discussed with: nurse, social work, case management, provider contracting consultant - Time Spent with Patient Total time spent providing and/or coordinating discharge services: Time spent: Less than 30 minutes - Discharge Medications Prescriptions: Continued Quetiapine Fumarate [Seroquel] 100 mg PO TID PARoxetine HCl [Paroxetine HCl] 40 mg PO 1600 Home Medications: PARoxetine HCl [Paroxetine HCl] 40 mg PO 1600 01/25/18 [History] Quetiapine Fumarate [Seroquel] 100 mg PO TID 01/25/18 [History] Allergies/Adverse Reactions: Allergy/AdvReac Type Severity Reaction Status Date / Time lorazepam [From Ativan] Allergy Rash Verified 06/09/18 18:46 tb skin test Allergy Mild Rash Uncoded 06/09/18 18:46 Date of admission: 08/13/18 01:32 Primary care physician: Vel Voss MD Consults: 08/13/18 01:25 Consult to Pulmonology [CONS] Routine Consulting Provider: [facility] [place] Reason for Consult: Poitive PPD test Call Completed: Yes 08/14/18 11:44 Consult to Infectious Diseases [CONS] Routine Consulting Provider: Infectious [facility] [place] Reason for Consult: positive ppD and CXR s/p bronch Call Completed: No - Constitutional Vitals: Temp Pulse Resp BP Pulse Ox 97.6 F 73 17 173/78 94 08/16/18 07:54 08/16/18 07:54 08/16/18 07:54 08/16/18 07:54 08/16/18 07:54 General appearance: Present: no acute distress. Absent: cooperative, answers questions appropriately Exam: General: Patient is alert, uncooperative, does not respond to questions , shakes head yes or no to some questions Head: atraumatic, normocephalic, Eye: normal appearance, PERRL, no scleral icterus, no conjunctival injection ENT: mucous membranes moist, normal external ear exam Neck: normal inspection, trachea midline, full ROM, no carotid bruits Chest: normal inspection, symmetric chest rise Respiratory: Good respiratory effort. Bilateral breath sounds are clear without wheezing, crackles, or rhonchi. Cardiovascular: Regular rate and rhythm. s1 and s2 No clicks, rubs, gallops, or murmors. Abdomen: Bowel sounds present normoactive x-4 quadrants. Abdomen is soft, nondistended. no Epigastric tenderness. No guarding or rebound. No organomegaly noted, obese musculoskeletal: Spontaneously moving all extremities. no edema, no calf tenderness Skin: warm, dry, intact. Neuro: Alert and not oriented, uncooperative, does not respond questions. As per nursing staff she does speak some. Psych: Flat affect - Patient Status Disposition: Transfer SNF Condition: Fair Functional capacity at discharge: independent ambulation Overall status at discharge: patient is progressing back to baseline - Discharge Instructions Follow Up With: Vel Voss MD [Primary Care Provider] - 08/26/18 1:00 pm () - Diet and Activity Activity: increase activity as tolerated Diet: advance to your usual diet
[2018-08-16 11:09] VITALS: BP 137/86
--- NOTE | 2018-08-16 15:53 | Infectious Disease Progress No ---
ID Progress Note Date of Encounter: 08/16/18 Time of Encounter: 15:46 - Subjective Subjective: patient seen and examined. seems more awake and alert and with better mentation than yesterday. Sitting at bedside eating. Denies any chest pain no SOB. no abdominal pain no diarrhea. no urinary symptoms. VS NOted labs noted BAL reviewed - Objective CBC & Chem 7: 08/13/18 02:01 08/13/18 07:48 - Exam Vitals: Temp Pulse Resp BP Pulse Ox 98.0 F 92 17 137/86 96 08/16/18 11:08 08/16/18 11:08 08/16/18 11:08 08/16/18 11:08 08/16/18 11:08 Exam: GENERAL: Comfortable. Laying in bed NAD HEENT: GURDEEP, EOMI LUNGS: Good air sounds bilaterally, no wheezing or rhonchi CV: RRR, S1 S2 ABDOMEN: Soft, nontender, + bowel sounds EXT: Adequate perfusion. No edema NEURO: A&OX3; no focal deficit - Assessment and Plan (1) PPD positive Status: Acute -patient had a positive PPD at her PCP. - Since patient is a poor historian, I am currently unsure if she has any exposure to tuberculosis, not sure if she has any recent travels, was unable to get any occupational exposure or any other past social history. -Patient had no history of any hemoptysis in the ER or during the course of her hospital stay. - she is afebrile, does not endorses any pain while breathing or coughing -Patient was chest x-ray was positive for focal pneumonitis versus subsegmental atelectasis in the central lower right lung. -She is currently status post a bronchoscopy and BAL: AFB negative *3 -Patient's airborne isolation has been discontinued because patient's AFB smears has been negative *3. PLAN: may d/c home to follow up with me in clinic if quantiferon is positive and AFB cultures remain negative, we will treat for latent TB SNOMED Code(s): 086701044 (2) Abnormal CXR Status: Acute CXR: Focal pneumonitis versus subsegmental atelectasis central lower right lung. Chronic appearing coarse interstitial densities predominate parahilar regions and lung bases, typical of sequela from smoking or other previous infectious/inflammatory process. PLAN: -as above SNOMED Code(s): 558877001, 382429776 (3) Dementia Status: Chronic Patient has a history of dementia and is a resident at a assisted. Continue home medications. Qualifiers: Dementia type: unspecified type Dementia behavioral disturbance: with behavioral disturbance Qualified Code(s): F03.91 - Unspecified dementia with behavioral disturbance SNOMED Code(s): 40422382 Consult Discharge Plan - Plan Instructions: Tuberculosis (DC), Tuberculosis (GEN) [facility] [place] [Primary Care Provider] - 08/26/18 1:00 pm () Franck Sanchez MD [Partnered Physician] - (Referral has been made. Office will call to schedule appointment within 2-3 weeks)
[2018-08-17 06:23] LABS: HSV Source BAL RUL
[2018-08-17 06:23] LABS: HSV Source BAL RUL
[2018-08-17 16:58] LABS: Influenza A PCR Body Fluid NOT DETECTED; Influenza B PCR Body Fluid NOT DETECTED; RVP Body Fluid Source BAL LUL
[2018-08-17 16:58] LABS: Influenza A PCR Body Fluid NOT DETECTED; Influenza B PCR Body Fluid NOT DETECTED; RVP Body Fluid Source BAL RML
[2018-08-17 16:58] LABS: Influenza A PCR Body Fluid NOT DETECTED; Influenza B PCR Body Fluid NOT DETECTED; RVP Body Fluid Source BAL RUL
[2018-08-18 08:12] LABS: RSV PCR Body Fluid NOT DETECTED
[2018-08-18 08:12] LABS: RSV PCR Body Fluid NOT DETECTED
[2018-08-18 08:12] LABS: RSV PCR Body Fluid NOT DETECTED
[2018-08-19 14:40] LABS: QuantiFERON Mitogen minus NIL >10.00 IU/mL
[2018-08-20 08:20] LABS: QuantiFERON NIL 0.04 IU/mL; QuantiFERON-TB Gold In-Tube NEGATIVE (Negative)
== END 2018-08-16 14:36 | DRG 178 ==
LOC: EMEROOARM 17:54 → 3BNU 17:54 → SUATTDRO 08-13 01:32
PROVIDERS: ADMIT Pediatrics; ATTEND Internal Medicine

== ENCOUNTER 2019-08-19 10:49 | Inpatient (IN) ==
[2019-08-19] MEDS ORDERED: Ziprasidone 10 MG in Water for inj. (sterile) 0.5 ML IM ONE (11:15)
[2019-08-19] MEDS ORDERED: 0.9 % Sodium Chloride 1,000 ML IVC ONE (11:16)
[2019-08-19 11:49] LABS: Basophils % 0.3 %; Eosinophils % 0.4 %; Hematocrit 38.8 % (35.3-44.9); Hemoglobin 11.6 g/dL (11.5-15.4); Immature Granulocytes % 0.4 % (0-4); Lymphocytes # 1.7 K/mcL (0.6-4.6); Lymphocytes % 24.7 %; Mean Corpuscular HGB Conc 29.9 g/dL (31.6-35.5); Mean Corpuscular Hemoglobin 26.6 pg (28.0-33.3); Mean Platelet Volume 10.6 fL (9.4-12.4); Monocytes # 0.6 K/mcL (0.0-1.3); Monocytes % 8.6 %; Neutrophils # 4.4 K/mcL (1.6-8.9); Platelet Count 232 K/mcL (140-400); Red Blood Count 4.36 M/mcL (3.82-4.97); Red Cell Distribution Width 12.5 % (11.5-14.5); Segmented Neutrophils % 65.6 %; White Blood Count 6.7 K/mcL (4.3-11.1)
[2019-08-19 12:18] LABS: Alanine Aminotransferase 6 Units/L (7-52); Albumin 3.8 g/dL (3.5-5.7); Albumin/Globulin Ratio 1.2 (1.1-2.2); Alkaline Phosphatase 60 Units/L (34-104); Aspartate Amino Transferase 11 Units/L (13-39); BUN/Creatinine Ratio 29 (6-26); Bilirubin,Direct 0.1 mg/dL (0.0-0.2); Bilirubin,Indirect 0.2 mg/dL (0.0-1.0); Bilirubin,Total 0.3 mg/dL (0.3-1.0); Blood Urea Nitrogen 23 mg/dL (8-23); Calcium 8.8 mg/dL (8.6-10.3); Carbon Dioxide 29 mEq/L (23-29); Chloride 104 mEq/L (98-107); Globulin 3.1 g/dL (2.4-3.5); Glucose 106 mg/dL (70-105); Lipase 26 Units/L (11-82); Osmolality,Calculated 292 (280-300); Sodium 139 mEq/L (136-145); Total Protein 6.9 g/dL (6.4-8.9); eGFR For African Americans > 60 (> 60); eGFR For Non-African Americans > 60 (> 60)
[2019-08-19 12:45] LABS: Amorphous Sediment,Urine Few per hpf (None-Few); Bilirubin,Urine Negative (Negative); Blood,Urine Small (Negative); Clarity,Urine Turbid (Clear); Color,Urine Light-Yellow (Yellow); Glucose,Urine (UA) Normal (Normal); Ketones,Urine Negative (Negative); Leukocyte Esterase,Urine Negative (Negative); Mucus,Urine Few per lpf (None-Few); Nitrite,Urine Negative (Negative); PH,Urine 7.5 pH Units (5.0-8.0); Protein,Urine Negative (Neg-Trace); Specific Gravity,Urine 1.014 (1.010-1.025); Squamous Epithelial Cell,Urine Few per hpf (None-Few); Urobilinogen,Urine Normal (Normal); WBC,Urine 0-3 per hpf (0-3)
[2019-08-19] MEDS ORDERED: Morphine Sulfate 2 MG/ML SYRINGE IVP ONE (14:36)
[2019-08-19] MEDS ORDERED: Acetaminophen 325 MG TABLET PO PRN (14:44)
[2019-08-19] MEDS ORDERED: Naloxone 0.4 MG/ML INJ IVP PRN (14:44)
[2019-08-19] MEDS ORDERED: *HR* HYDROcodone/Acet 5/325 mg TABLET PO PRN (14:44)
[2019-08-19] MEDS ORDERED: Ondansetron 4 MG/2 ML VIAL IVP PRN (14:44)
[2019-08-19] MEDS ORDERED: Mag Hydrox/Al Hydrox/Simeth 30 ML UDC PO PRN (14:44)
[2019-08-19] MEDS ORDERED: MOM Conc 10 ML UD.LIQ PO PRN (14:44)
[2019-08-20] MEDS ORDERED: Haloperidol Lactate 5 MG/ML VIAL IVP ONE (07:23)
[2019-08-20] MEDS: *HR* LORazepam 2 MG/ML VIAL IVP ONE ×2 (08:14→08:20)
[2019-08-20] MEDS ORDERED: Ziprasidone 10 MG in Water for inj. (sterile) 0.5 ML IM ONE (08:18)
[2019-08-20] MEDS: risperiDONE 0.25 MG TABLET PO SCH ×2 (09:34→19:45)
[2019-08-20] MEDS: PARoxetine 20 MG TABLET PO SCH (09:34)
[2019-08-20] MEDS: QUEtiapine Fumarate 100 MG TABLET PO SCH (19:45)
[2019-08-21 02:53] LABS: Hematocrit 35.4 % (35.3-44.9); Mean Corpuscular HGB Conc 31.1 g/dL (31.6-35.5); Mean Corpuscular Hemoglobin 27.4 pg (28.0-33.3); Mean Corpuscular Volume 88.3 fL (83.0-100.0); Mean Platelet Volume 10.8 fL (9.4-12.4); Platelet Count 210 K/mcL (140-400); Red Blood Count 4.01 M/mcL (3.82-4.97); Red Cell Distribution Width 12.5 % (11.5-14.5); White Blood Count 7.2 K/mcL (4.3-11.1)
[2019-08-21 03:12] LABS: BUN/Creatinine Ratio 26 (6-26); Blood Urea Nitrogen 21 mg/dL (8-23); Calcium 8.7 mg/dL (8.6-10.3); Carbon Dioxide 27 mEq/L (23-29); Chloride 105 mEq/L (98-107); Glucose 102 mg/dL (70-105); Magnesium 1.9 mg/dL (1.6-2.6); Osmolality,Calculated 291 (280-300); Potassium 3.6 mEq/L (3.5-5.1); Sodium 139 mEq/L (136-145); eGFR For African Americans > 60 (> 60); eGFR For Non-African Americans > 60 (> 60)
[2019-08-21] MEDS: risperiDONE 0.25 MG TABLET PO SCH ×2 (08:41→20:41)
[2019-08-21] MEDS: PARoxetine 20 MG TABLET PO SCH (08:41)
[2019-08-21] MEDS: QUEtiapine Fumarate 100 MG TABLET PO SCH (20:41)
[2019-08-22] MEDS: risperiDONE 0.25 MG TABLET PO SCH ×2 (08:12→22:18)
[2019-08-22] MEDS: PARoxetine 20 MG TABLET PO SCH (08:14)
[2019-08-22 09:36] LABS: Basophils % 0.2 %; Eosinophils # 0.1 K/mcL (0.0-0.6); Eosinophils % 0.9 %; Hematocrit 38.8 % (35.3-44.9); Immature Granulocytes % 0.9 % (0-4); Lymphocytes % 23.1 %; Mean Corpuscular HGB Conc 30.9 g/dL (31.6-35.5); Mean Corpuscular Hemoglobin 27.5 pg (28.0-33.3); Mean Platelet Volume 10.8 fL (9.4-12.4); Monocytes # 0.9 K/mcL (0.0-1.3); Monocytes % 10.8 %; Neutrophils # 5.6 K/mcL (1.6-8.9); Platelet Count 215 K/mcL (140-400); Red Blood Count 4.36 M/mcL (3.82-4.97); Red Cell Distribution Width 12.6 % (11.5-14.5); Segmented Neutrophils % 64.1 %; White Blood Count 8.7 K/mcL (4.3-11.1)
[2019-08-22 09:58] LABS: BUN/Creatinine Ratio 25 (6-26); Blood Urea Nitrogen 20 mg/dL (8-23); Calcium 8.9 mg/dL (8.6-10.3); Carbon Dioxide 28 mEq/L (23-29); Chloride 104 mEq/L (98-107); Glucose 112 mg/dL (70-105); Osmolality,Calculated 289 (280-300); Potassium 3.9 mEq/L (3.5-5.1); Sodium 138 mEq/L (136-145); eGFR For African Americans > 60 (> 60); eGFR For Non-African Americans > 60 (> 60)
[2019-08-22] MEDS ORDERED: Lidocaine -MPF 2% 2 ML VIAL ONE ×2 (12:44→14:32)
[2019-08-22] MEDS ORDERED: *HR* Propofol 200 MG/20 ML VIAL IVP ONE (12:44)
[2019-08-22] MEDS ORDERED: Lidocaine -MPF 4% 5 ML AMPUL ONE (13:35)
[2019-08-22] MEDS ORDERED: *HR* Succinylcholine 200 MG/10 ML VIAL IVP ONE (13:35)
[2019-08-22] MEDS: QUEtiapine Fumarate 100 MG TABLET PO SCH (22:18)
[2019-08-23] MEDS: risperiDONE 0.25 MG TABLET PO SCH ×2 (07:43→21:04)
[2019-08-23] MEDS: PARoxetine 20 MG TABLET PO SCH (07:43)
[2019-08-23 09:24] LABS: Basophils % 0.2 %; Eosinophils % 0.4 %; Hematocrit 38.4 % (35.3-44.9); Hemoglobin 11.5 g/dL (11.5-15.4); Immature Granulocytes % 0.7 % (0-4); Lymphocytes # 2.3 K/mcL (0.6-4.6); Lymphocytes % 28.4 %; Mean Corpuscular HGB Conc 29.9 g/dL (31.6-35.5); Mean Corpuscular Volume 90.1 fL (83.0-100.0); Mean Platelet Volume 10.8 fL (9.4-12.4); Monocytes # 0.7 K/mcL (0.0-1.3); Platelet Count 226 K/mcL (140-400); Red Blood Count 4.26 M/mcL (3.82-4.97); Red Cell Distribution Width 12.4 % (11.5-14.5); Segmented Neutrophils % 61.3 %; White Blood Count 8.2 K/mcL (4.3-11.1)
[2019-08-23 09:43] LABS: BUN/Creatinine Ratio 25 (6-26); Blood Urea Nitrogen 19 mg/dL (8-23); Calcium 8.4 mg/dL (8.6-10.3); Carbon Dioxide 30 mEq/L (23-29); Chloride 107 mEq/L (98-107); Glucose 104 mg/dL (70-105); Osmolality,Calculated 297 (280-300); Potassium 4.3 mEq/L (3.5-5.1); Sodium 142 mEq/L (136-145); eGFR For African Americans > 60 (> 60); eGFR For Non-African Americans > 60 (> 60)
[2019-08-23] MEDS ORDERED: Isovue-370 500 ML BOTTLE IVP ONE (10:36)
[2019-08-23 10:57] LABS: Lactate Dehydrogenase 140 Units/L (140-271)
[2019-08-23] MEDS ORDERED: Ziprasidone 10 MG in Water for inj. (sterile) 0.5 ML IM ONE (15:34)
[2019-08-23] MEDS: QUEtiapine Fumarate 100 MG TABLET PO SCH (21:03)
[2019-08-24 04:46] LABS: Hemoglobin 11.3 g/dL (11.5-15.4); Mean Corpuscular Hemoglobin 26.8 pg (28.0-33.3); Red Blood Count 4.21 M/mcL (3.82-4.97); Red Cell Distribution Width 12.4 % (11.5-14.5)
[2019-08-24 04:48] LABS: Basophils % 0.3 %; Eosinophils % 0.5 %; Hematocrit 37.2 % (35.3-44.9); Immature Granulocytes % 0.7 % (0-4); Immature Platelets 9.8 % (1.1-6.1); Lymphocytes # 2.3 K/mcL (0.6-4.6); Lymphocytes % 29.6 %; Mean Corpuscular HGB Conc 30.4 g/dL (31.6-35.5); Mean Corpuscular Volume 88.4 fL (83.0-100.0); Mean Platelet Volume 11.7 fL (9.4-12.4); Monocytes # 1.1 K/mcL (0.0-1.3); Monocytes % 14.9 %; Neutrophils # 4.1 K/mcL (1.6-8.9); Platelet Count 189 K/mcL (140-400); White Blood Count 7.6 K/mcL (4.3-11.1)
[2019-08-24 05:04] LABS: BUN/Creatinine Ratio 31 (6-26); Blood Urea Nitrogen 19 mg/dL (8-23); Calcium 8.3 mg/dL (8.6-10.3); Carbon Dioxide 28 mEq/L (23-29); Chloride 107 mEq/L (98-107); Glucose 91 mg/dL (70-105); Osmolality,Calculated 294 (280-300); Sodium 141 mEq/L (136-145); eGFR For African Americans > 60 (> 60); eGFR For Non-African Americans > 60 (> 60)
[2019-08-24 06:13] LABS: Platelet Estimate Normal (Normal)
[2019-08-24] MEDS: risperiDONE 0.25 MG TABLET PO SCH ×2 (09:46→20:14)
[2019-08-24] MEDS: PARoxetine 20 MG TABLET PO SCH (09:47)
[2019-08-24] MEDS ORDERED: Isovue-370 500 ML BOTTLE PO ONE (15:57)
[2019-08-24] MEDS: QUEtiapine Fumarate 100 MG TABLET PO SCH (20:14)
[2019-08-25 05:33] LABS: Basophils % 0.2 %; Eosinophils % 0.2 %; Hematocrit 37.4 % (35.3-44.9); Hemoglobin 11.5 g/dL (11.5-15.4); Immature Granulocytes % 0.5 % (0-4); Lymphocytes # 2.2 K/mcL (0.6-4.6); Lymphocytes % 36.3 %; Mean Corpuscular HGB Conc 30.7 g/dL (31.6-35.5); Mean Corpuscular Hemoglobin 27.5 pg (28.0-33.3); Mean Corpuscular Volume 89.5 fL (83.0-100.0); Mean Platelet Volume 10.8 fL (9.4-12.4); Monocytes # 0.9 K/mcL (0.0-1.3); Monocytes % 15.3 %; Neutrophils # 2.9 K/mcL (1.6-8.9); Platelet Count 215 K/mcL (140-400); Red Blood Count 4.18 M/mcL (3.82-4.97); Red Cell Distribution Width 12.3 % (11.5-14.5); Segmented Neutrophils % 47.5 %
[2019-08-25 05:49] LABS: BUN/Creatinine Ratio 27 (6-26); Blood Urea Nitrogen 19 mg/dL (8-23); Calcium 8.7 mg/dL (8.6-10.3); Carbon Dioxide 31 mEq/L (23-29); Chloride 105 mEq/L (98-107); Glucose 98 mg/dL (70-105); Osmolality,Calculated 296 (280-300); Potassium 3.4 mEq/L (3.5-5.1); Sodium 142 mEq/L (136-145); eGFR For African Americans > 60 (> 60); eGFR For Non-African Americans > 60 (> 60)
[2019-08-25 07:02] VITALS: BP 159/82
[2019-08-25] MEDS ORDERED: Potassium Chloride Elixir 20 MEQ/15 ML UDC PO ONE (07:45)
[2019-08-25] MEDS: PARoxetine 20 MG TABLET PO SCH (09:03)
[2019-08-25] MEDS: risperiDONE 0.25 MG TABLET PO SCH (09:04)
== END 2019-08-25 11:33 | DRG 392 ==
LOC: 2ANU 10:49 → EMEROOARM 10:49 → 2ANU 16:21 → SUATTDRO 17:52 → 2ANU 08-20 09:41 → UNDODISIN 08-25 10:35
PROVIDERS: ADMIT Internal Medicine; ATTEND Internal Medicine
PROC: ENDOEBX (2019-08-22 13:35)

== ENCOUNTER 2020-11-29 11:16 | Inpatient (IN) ==
[2020-11-29 12:23] LABS: Basophils % 0.1 %; Hemoglobin 12.2 g/dL (11.5-15.4); Immature Granulocytes % 2.8 % (0-4); Lymphocytes # 0.9 K/mcL (0.6-4.6); Lymphocytes % 3.8 %; Mean Corpuscular HGB Conc 31.3 g/dL (31.6-35.5); Mean Corpuscular Hemoglobin 27.7 pg (28.0-33.3); Mean Corpuscular Volume 88.4 fL (83.0-100.0); Monocytes # 2.1 K/mcL (0.0-1.3); Monocytes % 9.4 %; Platelet Count 210 K/mcL (140-400); Red Blood Count 4.41 M/mcL (3.82-4.97); Red Cell Distribution Width 12.5 % (11.5-14.5); Segmented Neutrophils % 83.9 %; White Blood Count 22.7 K/mcL (4.3-11.1)
[2020-11-29 12:32] LABS: Bilirubin,Urine Small (Negative); Blood,Urine Small (Negative); Clarity,Urine Turbid (Clear); Color,Urine Dark-Yellow (Yellow); Glucose,Urine (UA) Normal (Normal); Hyaline Casts,Urine Few per lpf (None Seen); Ketones,Urine Trace mg/dL (Negative); Leukocyte Esterase,Urine Small (Negative); Mucus,Urine Moderate per lpf (None-Few); Nitrite,Urine Negative (Negative); PH,Urine 5.5 pH Units (5.0-8.0); Protein,Urine 30 mg/dL (Neg-Trace); RBC,Urine 15-30 per hpf (0-3); Specific Gravity,Urine 1.029 (1.010-1.025); Squamous Epithelial Cell,Urine Moderate per hpf (None-Few); Urobilinogen,Urine >=8.0 mg/dL (Normal)
[2020-11-29 12:39] LABS: Amphetamine Screen,Urine Negative ng/mL (Cutoff=1000); Barbiturate Screen,Urine Negative ng/mL (Cutoff=200); Benzodiazepines Screen,Urine Negative ng/mL (Cutoff=200); Cannabinoid Screen,Urine Negative ng/mL (Cutoff = 50); Cocaine Screen,Urine Negative ng/mL (Cutoff= 300); Opiate Screen,Urine Negative ng/mL (Cutoff=300); Phencyclidine Screen,Urine Negative ng/mL (Cutoff=25)
[2020-11-29] MEDS ORDERED: 0.9 % Sodium Chloride 1,000 ML IVC ONE (12:40)
[2020-11-29 12:52] LABS: Alanine Aminotransferase 182 Units/L (7-52); Albumin 3.7 g/dL (3.5-5.7); Albumin/Globulin Ratio 1.4 (1.1-2.2); Alkaline Phosphatase 288 Units/L (34-104); Aspartate Amino Transferase 253 Units/L (13-39); BUN/Creatinine Ratio 27 (6-26); Bilirubin,Direct 0.4 mg/dL (0.0-0.2); Bilirubin,Indirect 0.7 mg/dL (0.0-1.0); Bilirubin,Total 1.1 mg/dL (0.3-1.0); Blood Urea Nitrogen 23 mg/dL (8-23); Calcium 9.1 mg/dL (8.6-10.3); Carbon Dioxide 30 mEq/L (23-29); Chloride 104 mEq/L (98-107); Ethanol < 10 mg/dL (Less than 10); Globulin 2.7 g/dL (2.4-3.5); Glucose 117 mg/dL (70-105); Osmolality,Calculated 297 (280-300); Sodium 141 mEq/L (136-145); Total Protein 6.4 g/dL (6.4-8.9); Troponin I < 0.03 ng/mL (< 0.04); eGFR For African Americans > 60 (> 60); eGFR For Non-African Americans > 60 (> 60)
[2020-11-29] MEDS ORDERED: cefTRIAXone 1,000 MG in 0.9 % Sodium Chloride Mini Bag 100 ML IVPB ONE (14:15)
[2020-11-29 14:33] LABS: Acetaminophen < 10 mcg/mL (10-20)
[2020-11-29] MEDS ORDERED: Naloxone 0.4 MG/ML INJ IVP PRN (16:08)
[2020-11-29] MEDS ORDERED: Ondansetron ODT 4 MG TAB.RAPDIS SL PRN (16:08)
[2020-11-29] MEDS: 0.9 % Sodium Chloride 1,000 ML IVC SCH (19:01)
[2020-11-30] MEDS: 0.9 % Sodium Chloride 1,000 ML IVC SCH (06:23)
[2020-11-30 06:30] LABS: Basophils % 0.1 %; Eosinophils % 0.1 %; Hematocrit 33.1 % (35.3-44.9); Immature Granulocytes % 0.7 % (0-4); Lymphocytes # 1.5 K/mcL (0.6-4.6); Mean Corpuscular HGB Conc 31.7 g/dL (31.6-35.5); Mean Corpuscular Hemoglobin 28.4 pg (28.0-33.3); Mean Corpuscular Volume 89.5 fL (83.0-100.0); Mean Platelet Volume 11.5 fL (9.4-12.4); Monocytes # 2.4 K/mcL (0.0-1.3); Monocytes % 19.7 %; Neutrophils # 8.3 K/mcL (1.6-8.9); Platelet Count 160 K/mcL (140-400); Red Cell Distribution Width 12.4 % (11.5-14.5); Segmented Neutrophils % 67.4 %; White Blood Count 12.3 K/mcL (4.3-11.1)
[2020-11-30 06:37] LABS: Hemoglobin 10.5 g/dL (11.5-15.4)
[2020-11-30 06:50] LABS: Alanine Aminotransferase 143 Units/L (7-52); Albumin 3.2 g/dL (3.5-5.7); Albumin/Globulin Ratio 1.4 (1.1-2.2); Alkaline Phosphatase 222 Units/L (34-104); Aspartate Amino Transferase 137 Units/L (13-39); BUN/Creatinine Ratio 28 (6-26); Bilirubin,Total 0.6 mg/dL (0.3-1.0); Blood Urea Nitrogen 20 mg/dL (8-23); Calcium 8.3 mg/dL (8.6-10.3); Carbon Dioxide 28 mEq/L (23-29); Chloride 106 mEq/L (98-107); Globulin 2.3 g/dL (2.4-3.5); Glucose 91 mg/dL (70-105); Magnesium 1.6 mg/dL (1.6-2.6); Osmolality,Calculated 290 (280-300); Potassium 3.7 mEq/L (3.5-5.1); Sodium 139 mEq/L (136-145); Total Protein 5.5 g/dL (6.4-8.9); eGFR For African Americans > 60 (> 60); eGFR For Non-African Americans > 60 (> 60)
[2020-11-30 07:14] LABS: Platelet Estimate Normal (Normal); Reactive Lymphocytes Present (Not Present)
[2020-11-30 07:29] LABS: Hepatitis B Surface Antigen Nonreactive (Nonreactive)
[2020-11-30 07:58] LABS: Hepatitis B Core IgM Nonreactive (Nonreactive)
[2020-11-30 07:59] LABS: Hepatitis C Virus Antibody Nonreactive (Nonreactive)
[2020-11-30 08:00] LABS: Hepatitis A Antibody IgM Nonreactive (Nonreactive)
[2020-11-30] MEDS: cefTRIAXone 1,000 MG in Water for inj. (sterile) 10 ML IVP SCH (08:45)
[2020-11-30] MEDS: risperiDONE 1 MG TABLET PO SCH ×2 (15:36→20:41)
[2020-11-30] MEDS: PARoxetine 20 MG TABLET PO SCH (15:36)
[2020-11-30] MEDS: QUEtiapine Fumarate 25 MG TABLET PO SCH (20:41)
[2020-12-01 07:22] LABS: Alanine Aminotransferase 102 Units/L (7-52); Albumin 2.8 g/dL (3.5-5.7); Alkaline Phosphatase 203 Units/L (34-104); Aspartate Amino Transferase 69 Units/L (13-39); BUN/Creatinine Ratio 20 (6-26); Bilirubin,Total 0.4 mg/dL (0.3-1.0); Blood Urea Nitrogen 11 mg/dL (8-23); Carbon Dioxide 19 mEq/L (23-29); Chloride 104 mEq/L (98-107); Glucose 94 mg/dL (70-105); Magnesium 1.5 mg/dL (1.6-2.6); Osmolality,Calculated 275 (280-300); Phosphorous 2.6 mg/dL (2.7-4.5); Potassium 3.6 mEq/L (3.5-5.1); Sodium 133 mEq/L (136-145); eGFR For African Americans > 60 (> 60); eGFR For Non-African Americans > 60 (> 60)
[2020-12-01 08:07] LABS: Albumin/Globulin Ratio 1.1 (1.1-2.2); Globulin 2.6 g/dL (2.4-3.5); Total Protein 5.4 g/dL (6.4-8.9)
[2020-12-01] MEDS: PARoxetine 20 MG TABLET PO SCH (08:08)
[2020-12-01] MEDS: polyethylene glycoL 3350 17 GM POWD.PACK PO SCH (08:08)
[2020-12-01] MEDS: risperiDONE 1 MG TABLET PO SCH ×2 (08:09→20:21)
[2020-12-01] MEDS: cefTRIAXone 1,000 MG in Water for inj. (sterile) 10 ML IVP SCH (08:09)
[2020-12-01] MEDS: QUEtiapine Fumarate 25 MG TABLET PO SCH (20:21)
[2020-12-02 03:06] LABS: Basophils % 0.1 %; Eosinophils % 0.3 %; Hematocrit 34.1 % (35.3-44.9); Immature Granulocytes % 0.7 % (0-4); Lymphocytes # 2.6 K/mcL (0.6-4.6); Lymphocytes % 34.5 %; Mean Corpuscular HGB Conc 29.9 g/dL (31.6-35.5); Mean Corpuscular Hemoglobin 28.2 pg (28.0-33.3); Mean Corpuscular Volume 94.2 fL (83.0-100.0); Mean Platelet Volume 11.9 fL (9.4-12.4); Monocytes # 1.2 K/mcL (0.0-1.3); Monocytes % 16.3 %; Neutrophils # 3.6 K/mcL (1.6-8.9); Platelet Count 161 K/mcL (140-400); Red Blood Count 3.62 M/mcL (3.82-4.97); Red Cell Distribution Width 12.4 % (11.5-14.5); Segmented Neutrophils % 48.1 %; White Blood Count 7.5 K/mcL (4.3-11.1)
[2020-12-02 03:12] LABS: Hemoglobin 10.2 g/dL (11.5-15.4)
[2020-12-02 03:36] LABS: Alanine Aminotransferase 71 Units/L (7-52); Albumin 2.8 g/dL (3.5-5.7); Albumin/Globulin Ratio 1.2 (1.1-2.2); Alkaline Phosphatase 172 Units/L (34-104); Aspartate Amino Transferase 33 Units/L (13-39); BUN/Creatinine Ratio 19 (6-26); Bilirubin,Total 0.3 mg/dL (0.3-1.0); Blood Urea Nitrogen 12 mg/dL (8-23); Calcium 8.5 mg/dL (8.6-10.3); Carbon Dioxide 25 mEq/L (23-29); Chloride 104 mEq/L (98-107); Globulin 2.4 g/dL (2.4-3.5); Glucose 66 mg/dL (70-105); Magnesium 1.6 mg/dL (1.6-2.6); Osmolality,Calculated 278 (280-300); Potassium 3.7 mEq/L (3.5-5.1); Sodium 135 mEq/L (136-145); Total Protein 5.2 g/dL (6.4-8.9); eGFR For African Americans > 60 (> 60); eGFR For Non-African Americans > 60 (> 60)
[2020-12-02] MEDS: PARoxetine 20 MG TABLET PO SCH (07:29)
[2020-12-02] MEDS: cefTRIAXone 1,000 MG in Water for inj. (sterile) 10 ML IVP SCH (07:29)
[2020-12-02] MEDS: risperiDONE 1 MG TABLET PO SCH (07:30)
[2020-12-02] MEDS: polyethylene glycoL 3350 17 GM POWD.PACK PO SCH (07:30)
[2020-12-02 07:55] VITALS: BP 145/76; PULSE 70; TEMP 97.7; O2SAT 95
== END 2020-12-02 15:17 | disposition home or self-care (01) | DRG 872 ==
LOC: 3ANU 11:16 → EMEROOARM 11:16 → 3ANU 17:04
PROVIDERS: ADMIT Family Medicine; ATTEND Family Medicine

== ENCOUNTER 2020-12-11 19:41 | Inpatient (IN) ==
[2020-12-11] MEDS ORDERED: 0.9 % Sodium Chloride 500 ML IVC ONE ×2 (20:35→22:24)
[2020-12-11 20:59] LABS: Basophils % 0.1 %; Hematocrit 41.1 % (35.3-44.9); Hemoglobin 12.6 g/dL (11.5-15.4); Immature Granulocytes % 0.5 % (0-4); Lymphocytes # 1.1 K/mcL (0.6-4.6); Lymphocytes % 11.1 %; Mean Corpuscular HGB Conc 30.7 g/dL (31.6-35.5); Mean Corpuscular Hemoglobin 27.5 pg (28.0-33.3); Mean Corpuscular Volume 89.5 fL (83.0-100.0); Mean Platelet Volume 10.8 fL (9.4-12.4); Monocytes # 0.4 K/mcL (0.0-1.3); Monocytes % 4.1 %; Neutrophils # 8.2 K/mcL (1.6-8.9); Platelet Count 262 K/mcL (140-400); Red Blood Count 4.59 M/mcL (3.82-4.97); Red Cell Distribution Width 12.5 % (11.5-14.5); Segmented Neutrophils % 84.2 %; White Blood Count 9.7 K/mcL (4.3-11.1)
[2020-12-11 21:24] LABS: Troponin I < 0.03 ng/mL (< 0.04)
[2020-12-11 21:38] LABS: Carbon Dioxide 23 mEq/L (23-29); Chloride 102 mEq/L (98-107); Potassium 4.2 mEq/L (3.5-5.1); Sodium 139 mEq/L (136-145)
[2020-12-11 22:19] LABS: Alanine Aminotransferase 14 Units/L (7-52); Albumin 3.6 g/dL (3.5-5.7); Albumin/Globulin Ratio 1.2 (1.1-2.2); Alkaline Phosphatase 108 Units/L (34-104); Aspartate Amino Transferase 24 Units/L (13-39); BUN/Creatinine Ratio 25 (6-26); Bilirubin,Direct 0.1 mg/dL (0.0-0.2); Bilirubin,Indirect 0.4 mg/dL (0.0-1.0); Bilirubin,Total 0.5 mg/dL (0.3-1.0); Blood Urea Nitrogen 18 mg/dL (8-23); Calcium 9.2 mg/dL (8.6-10.3); Ethanol < 10 mg/dL (Less than 10); Globulin 2.9 g/dL (2.4-3.5); Glucose 120 mg/dL (70-105); Osmolality,Calculated 291 (280-300); Total Protein 6.5 g/dL (6.4-8.9); eGFR For African Americans > 60 (> 60); eGFR For Non-African Americans > 60 (> 60)
[2020-12-11] MEDS ORDERED: Isovue-370 500 ML BOTTLE IVP ONE (22:23)
[2020-12-11] MEDS ORDERED: cefTRIAXone 1,000 MG in 0.9 % Sodium Chloride Mini Bag 100 ML IVPB ONE (22:25)
[2020-12-12] MEDS ORDERED: Ondansetron 4 MG/2 ML VIAL IVP PRN (02:08)
[2020-12-12] MEDS ORDERED: Naloxone 0.4 MG/ML INJ IVP PRN (02:08)
[2020-12-12] MEDS: 0.9 % Sodium Chloride 1,000 ML IVC SCH ×2 (05:02→15:01)
[2020-12-12] MEDS: *HR* Heparin 5,000 UNIT/ML VIAL SQ SCH ×2 (05:03→17:17)
[2020-12-12 05:32] LABS: Basophils % 0.1 %; Hematocrit 37.9 % (35.3-44.9); Immature Granulocytes % 1.6 % (0-4); Lymphocytes # 1.9 K/mcL (0.6-4.6); Lymphocytes % 8.6 %; Mean Corpuscular HGB Conc 31.7 g/dL (31.6-35.5); Mean Corpuscular Volume 88.3 fL (83.0-100.0); Mean Platelet Volume 10.7 fL (9.4-12.4); Monocytes # 2.1 K/mcL (0.0-1.3); Monocytes % 9.6 %; Neutrophils # 17.2 K/mcL (1.6-8.9); Platelet Count 246 K/mcL (140-400); Red Blood Count 4.29 M/mcL (3.82-4.97); Red Cell Distribution Width 12.8 % (11.5-14.5); Segmented Neutrophils % 80.1 %; White Blood Count 21.5 K/mcL (4.3-11.1)
[2020-12-12 05:34] LABS: VBG HCO3 28 mEq/L (21-27); VBG PCO2 44 mmHg (41-51); VBG PH 7.41 pH Units (7.32-7.42); VBG PO2 71 mmHg (25-50)
[2020-12-12 05:53] LABS: BUN/Creatinine Ratio 28 (6-26); Blood Urea Nitrogen 17 mg/dL (8-23); Calcium 8.7 mg/dL (8.6-10.3); Carbon Dioxide 28 mEq/L (23-29); Chloride 105 mEq/L (98-107); Glucose 106 mg/dL (70-105); Magnesium 1.8 mg/dL (1.6-2.6); Osmolality,Calculated 292 (280-300); Phosphorous 3.6 mg/dL (2.7-4.5); Potassium 3.8 mEq/L (3.5-5.1); Sodium 140 mEq/L (136-145); eGFR For African Americans > 60 (> 60); eGFR For Non-African Americans > 60 (> 60)
[2020-12-12] MEDS: QUEtiapine Fumarate 25 MG TABLET PO SCH (19:58)
[2020-12-12] MEDS: risperiDONE 1 MG TABLET PO SCH (19:58)
[2020-12-12] MEDS: cefTRIAXone 1,000 MG in Water for inj. (sterile) 10 ML IVP SCH (21:36)
[2020-12-13] MEDS: 0.9 % Sodium Chloride 1,000 ML IVC SCH ×3 (03:05→13:20)
[2020-12-13 03:08] LABS: BUN/Creatinine Ratio 24 (6-26); Blood Urea Nitrogen 15 mg/dL (8-23); Calcium 8.3 mg/dL (8.6-10.3); Carbon Dioxide 27 mEq/L (23-29); Chloride 107 mEq/L (98-107); Glucose 80 mg/dL (70-105); Osmolality,Calculated 292 (280-300); Potassium 3.5 mEq/L (3.5-5.1); Sodium 141 mEq/L (136-145); eGFR For African Americans > 60 (> 60); eGFR For Non-African Americans > 60 (> 60)
[2020-12-13 03:27] LABS: Hematocrit 37.8 % (35.3-44.9); Hemoglobin 11.3 g/dL (11.5-15.4); Mean Corpuscular HGB Conc 29.9 g/dL (31.6-35.5); Mean Corpuscular Hemoglobin 27.4 pg (28.0-33.3); Mean Corpuscular Volume 91.7 fL (83.0-100.0); Mean Platelet Volume 11.3 fL (9.4-12.4); Platelet Count 195 K/mcL (140-400); Red Blood Count 4.12 M/mcL (3.82-4.97); Red Cell Distribution Width 12.6 % (11.5-14.5)
[2020-12-13 03:36] LABS: White Blood Count 10.7 K/mcL (4.3-11.1)
[2020-12-13] MEDS: *HR* Heparin 5,000 UNIT/ML VIAL SQ SCH ×2 (05:29→17:44)
[2020-12-13] MEDS: PARoxetine 20 MG TABLET PO SCH (08:47)
[2020-12-13] MEDS: risperiDONE 1 MG TABLET PO SCH ×2 (08:47→20:48)
[2020-12-13] MEDS: QUEtiapine Fumarate 25 MG TABLET PO SCH (20:47)
[2020-12-13] MEDS: cefTRIAXone 1,000 MG in Water for inj. (sterile) 10 ML IVP SCH (21:16)
[2020-12-14] MEDS: 0.9 % Sodium Chloride 1,000 ML IVC SCH ×3 (00:08→18:29)
[2020-12-14 05:13] LABS: Hematocrit 33.6 % (35.3-44.9); Hemoglobin 10.5 g/dL (11.5-15.4); Mean Corpuscular HGB Conc 31.3 g/dL (31.6-35.5); Mean Corpuscular Hemoglobin 27.1 pg (28.0-33.3); Mean Corpuscular Volume 86.8 fL (83.0-100.0); Mean Platelet Volume 10.7 fL (9.4-12.4); Platelet Count 177 K/mcL (140-400); Red Blood Count 3.87 M/mcL (3.82-4.97); Red Cell Distribution Width 12.3 % (11.5-14.5); White Blood Count 7.6 K/mcL (4.3-11.1)
[2020-12-14 05:43] LABS: BUN/Creatinine Ratio 11 (6-26); Blood Urea Nitrogen 5 mg/dL (8-23); Carbon Dioxide 27 mEq/L (23-29); Chloride 105 mEq/L (98-107); Glucose 90 mg/dL (70-105); Osmolality,Calculated 285 (280-300); Potassium 3.1 mEq/L (3.5-5.1); Sodium 139 mEq/L (136-145); eGFR For African Americans > 60 (> 60); eGFR For Non-African Americans > 60 (> 60)
[2020-12-14] MEDS: *HR* Heparin 5,000 UNIT/ML VIAL SQ SCH ×2 (06:20→17:36)
[2020-12-14] MEDS: PARoxetine 20 MG TABLET PO SCH (08:13)
[2020-12-14] MEDS: risperiDONE 1 MG TABLET PO SCH ×2 (08:15→20:20)
[2020-12-14] MEDS: Potassium Chloride Elixir 20 MEQ/15 ML UDC PO SCH (20:19)
[2020-12-14] MEDS: QUEtiapine Fumarate 25 MG TABLET PO SCH (20:20)
[2020-12-14] MEDS: cefTRIAXone 1,000 MG in Water for inj. (sterile) 10 ML IVP SCH (22:04)
[2020-12-15 01:49] LABS: Hematocrit 33.7 % (35.3-44.9); Hemoglobin 10.3 g/dL (11.5-15.4); Mean Corpuscular HGB Conc 30.6 g/dL (31.6-35.5); Mean Corpuscular Hemoglobin 28.1 pg (28.0-33.3); Mean Corpuscular Volume 91.8 fL (83.0-100.0); Mean Platelet Volume 11.4 fL (9.4-12.4); Platelet Count 185 K/mcL (140-400); Red Blood Count 3.67 M/mcL (3.82-4.97); Red Cell Distribution Width 12.2 % (11.5-14.5); White Blood Count 8.2 K/mcL (4.3-11.1)
[2020-12-15 02:11] LABS: Blood Urea Nitrogen 8 mg/dL (8-23); Carbon Dioxide 24 mEq/L (23-29); Chloride 109 mEq/L (98-107); Potassium 4.2 mEq/L (3.5-5.1); Sodium 138 mEq/L (136-145)
[2020-12-15 02:12] LABS: BUN/Creatinine Ratio 16 (6-26); Calcium 7.9 mg/dL (8.6-10.3); Glucose 93 mg/dL (70-105); Osmolality,Calculated 284 (280-300); eGFR For African Americans > 60 (> 60); eGFR For Non-African Americans > 60 (> 60)
[2020-12-15] MEDS: *HR* Heparin 5,000 UNIT/ML VIAL SQ SCH ×2 (05:55→16:27)
[2020-12-15] MEDS: 0.9 % Sodium Chloride 1,000 ML IVC SCH ×2 (06:40→16:28)
[2020-12-15] MEDS: risperiDONE 1 MG TABLET PO SCH ×2 (10:22→20:23)
[2020-12-15] MEDS: Potassium Chloride Elixir 20 MEQ/15 ML UDC PO SCH ×2 (10:23→20:23)
[2020-12-15] MEDS: PARoxetine 20 MG TABLET PO SCH (10:23)
[2020-12-15] MEDS: QUEtiapine Fumarate 25 MG TABLET PO SCH (20:24)
[2020-12-15] MEDS: cefTRIAXone 1,000 MG in Water for inj. (sterile) 10 ML IVP SCH (21:36)
[2020-12-16] MEDS: 0.9 % Sodium Chloride 1,000 ML IVC SCH ×4 (02:42→23:29)
[2020-12-16] MEDS: *HR* Heparin 5,000 UNIT/ML VIAL SQ SCH ×2 (05:35→17:00)
[2020-12-16] MEDS: Potassium Chloride Elixir 20 MEQ/15 ML UDC PO SCH (08:22)
[2020-12-16] MEDS: risperiDONE 1 MG TABLET PO SCH ×2 (08:26→21:38)
[2020-12-16] MEDS: PARoxetine 20 MG TABLET PO SCH (08:26)
[2020-12-16] MEDS: cefTRIAXone 1,000 MG in Water for inj. (sterile) 10 ML IVP SCH (21:37)
[2020-12-16] MEDS: QUEtiapine Fumarate 25 MG TABLET PO SCH (21:38)
[2020-12-17] MEDS: *HR* Heparin 5,000 UNIT/ML VIAL SQ SCH ×2 (05:54→18:06)
[2020-12-17 07:51] LABS: Basophils % 0.2 %; Eosinophils % 0.4 %; Hematocrit 35.9 % (35.3-44.9); Hemoglobin 11.2 g/dL (11.5-15.4); Immature Granulocytes % 0.6 % (0-4); Lymphocytes # 2.7 K/mcL (0.6-4.6); Lymphocytes % 49.7 %; Mean Corpuscular HGB Conc 31.2 g/dL (31.6-35.5); Mean Corpuscular Hemoglobin 27.4 pg (28.0-33.3); Mean Corpuscular Volume 87.8 fL (83.0-100.0); Mean Platelet Volume 11.5 fL (9.4-12.4); Monocytes # 0.9 K/mcL (0.0-1.3); Monocytes % 16.7 %; Neutrophils # 1.7 K/mcL (1.6-8.9); Platelet Count 212 K/mcL (140-400); Red Blood Count 4.09 M/mcL (3.82-4.97); Red Cell Distribution Width 12.5 % (11.5-14.5); Segmented Neutrophils % 32.4 %; White Blood Count 5.3 K/mcL (4.3-11.1)
[2020-12-17 08:02] LABS: BUN/Creatinine Ratio 9 (6-26); Blood Urea Nitrogen 6 mg/dL (8-23); Calcium 8.8 mg/dL (8.6-10.3); Carbon Dioxide 31 mEq/L (23-29); Chloride 105 mEq/L (98-107); Glucose 78 mg/dL (70-105); Osmolality,Calculated 284 (280-300); Sodium 139 mEq/L (136-145); eGFR For African Americans > 60 (> 60); eGFR For Non-African Americans > 60 (> 60)
[2020-12-17] MEDS: PARoxetine 20 MG TABLET PO SCH (10:02)
[2020-12-17] MEDS: risperiDONE 1 MG TABLET PO SCH ×2 (10:02→19:52)
[2020-12-17] MEDS: 0.9 % Sodium Chloride 1,000 ML IVC SCH ×2 (10:06→19:51)
[2020-12-17] MEDS: QUEtiapine Fumarate 25 MG TABLET PO SCH (19:52)
[2020-12-18] MEDS: *HR* Heparin 5,000 UNIT/ML VIAL SQ SCH ×2 (05:25→16:45)
[2020-12-18] MEDS: 0.9 % Sodium Chloride 1,000 ML IVC SCH (05:28)
[2020-12-18] MEDS: PARoxetine 20 MG TABLET PO SCH (08:54)
[2020-12-18] MEDS: risperiDONE 1 MG TABLET PO SCH ×2 (08:54→20:13)
[2020-12-18] MEDS: QUEtiapine Fumarate 25 MG TABLET PO SCH (20:13)
[2020-12-19] MEDS: *HR* Heparin 5,000 UNIT/ML VIAL SQ SCH (05:47)
[2020-12-19] MEDS: PARoxetine 20 MG TABLET PO SCH (09:32)
[2020-12-19] MEDS: risperiDONE 1 MG TABLET PO SCH (09:32)
[2020-12-19 14:06] VITALS: BP 124/69; PULSE 101; TEMP 97.4; O2SAT 93
== END 2020-12-19 15:19 | disposition home health service (06) | DRG 689 ==
LOC: EMEROOARM 19:41 → 3ANU 19:41 → SUATTDRO 12-12 14:57
PROVIDERS: ADMIT Family Medicine; ATTEND Internal Medicine